=== PATIENT | male | born 1955 | race Caucasian/White ===

== ENCOUNTER 2017-02-10 19:59 | Emergency (ER) | payer MEDICARE ==
[2017-02-10] MEDS ORDERED: Lisinopril 20 MG Tab PO STA (21:02)
[2017-02-10] MEDS ORDERED: Lisinopril 10 MG Tab ONE (21:07)
--- NOTE | 2017-02-10 21:07 | EDM.PDOCBH ---
ED HPI GENERAL MEDICAL PROBLEM - General Chief Complaint: Behavioral/Psych Stated Complaint: EVAL Time Seen by Provider: 02/10/17 21:02 Source of Information: Reports: Patient History Limitations: Reports: No Limitations - History of Present Illness INITIAL COMMENTS - FREE TEXT/NARRATIVE: pt is homeless and he lives in his van. He was parked at the gas station in [place] and someone calld because he had been there a long time. He was brought in by the admissions counselor and he admits to being a schzophrenic. He is homeless but he was not trying to harm himself or anyone. Duration: Chronic, Other (pt does have a history of hypertension and is not taking his meds. ) Location: Reports: Head, Other ( pt does have a headache.) Associated Symptoms: Reports: Headaches - Related Data Allergies Allergy/AdvReac Type Severity Reaction Status Date / Time No Known Allergies Allergy Verified 02/10/17 20:24 Home Meds: Home Meds Acetaminophen [Acetaminophen Extra Strength] 1,000 mg PO QID 02/10/17 [History] Aspirin [Halfprin] 2 tab PO DAILY 02/10/17 [History] Omeprazole 1 tab PO DAILY 02/10/17 [History] Past Medical History HEENT History: Reports: Other (See Below) Other HEENT History: perforated eardrum Cardiovascular History: Reports: Hypertension Psychiatric History: Reports: Schizophrenia Other Psychiatric History: paranoid schizophrenia - Past Surgical History HEENT Surgical History: Reports: Adenoidectomy, Tonsillectomy, Other (See Below) Other HEENT Surgeries/Procedures: ENT surgery Cardiovascular Surgical History: Reports: Other (See Below) Other Cardiovascular Surgeries/Procedures: angiogram Social & Family History - Tobacco Use Smoking Status *Q: Never Smoker - Caffeine Use Caffeine Use: Reports: Coffee - Recreational Drug Use Recreational Drug Use: No ED ROS GENERAL - Review of Systems Review Of Systems: See Below Constitutional: Reports: No Symptoms HEENT: Reports: Other (pt would like to have some dental work) Respiratory: Reports: No Symptoms Cardiovascular: Reports: No Symptoms, Other (bp is quite high. ) Endocrine: Reports: No Symptoms GI/Abdominal: Reports: No Symptoms : Reports: No Symptoms Musculoskeletal: Reports: No Symptoms Skin: Reports: No Symptoms ED EXAM, BEHAVIORAL HEALTH - Physical Exam Exam: See Below Text/Narrative:: pt arrived with a history of schzophenia. He is living in his van. He was brought in by the admissions counselor because he has been there for awhile. Exam Limited By: No Limitations General Appearance: Alert, No Apparent Distress Ears: Normal TMs Nose: Normal Inspection Throat/Mouth: Normal Inspection, Other (pt has a few dental issues that do not look severe. ) Neck: Normal Inspection Respiratory/Chest: No Respiratory Distress Cardiovascular: Regular Rate, Rhythm GI/Abdominal: Soft, Non-Tender (Male) Exam: Deferred Rectal (Males) Exam: Deferred Back Exam: Normal Inspection Extremities: Normal Inspection Neurological: Alert, Normal Cognition, Other (pt is very paranoid. ) Psychiatric: Alert, Normal Cognition, Other (paranoid) COURSE, BEHAVIORAL HEALTH COMP - Course Vital Signs: Last Vital Signs Temp 37.2 C 02/10/17 20:32 Pulse 82 02/10/17 20:32 Resp 18 02/10/17 20:32 BP 206/131 H 02/10/17 21:11 Pulse Ox 98 02/10/17 20:32 Orders, Labs, Meds: Laboratory Tests 02/10/17 02/10/17 02/10/17 Range/Units 21:12 21:12 21:32 WBC 10.2 (4.5-11.0) K/uL RBC 5.24 (4.30-5.90) M/uL Hgb 14.4 (12.0-15.0) g/dL Hct 43.0 (40.0-54.0) % MCV 82 (80-98) fL MCH 28 (27-31) pg MCHC 34 (32-36) % Plt Count 267 (150-400) K/uL Neut % (Auto) 78 H (36-66) % Lymph % (Auto) 15 L (24-44) % [place] % (Auto) 7 H (2-6) % Eos % (Auto) 1 L (2-4) % Baso % (Auto) 0 (0-1) % Sodium 140 (140-148) mmol/L Potassium 3.7 (3.6-5.2) mmol/L Chloride 105 (100-108) mmol/L Carbon Dioxide 24 (21-32) mmol/L Anion Gap 10.7 (5.0-14.0) mmol/L BUN 16 (7-18) mg/dL Creatinine 1.0 (0.8-1.3) mg/dL Est Cr Clr Drug Dosing 82.13 mL/min Estimated GFR (MDRD) > 60 (>60) Glucose 127 H (74-106) mg/dL Calcium 9.0 (8.5-10.1) mg/dL Total Bilirubin 0.3 (0.2-1.0) mg/dL AST 13 L (15-37) U/L ALT 26 (12-78) U/L Alkaline Phosphatase 82 (46-116) U/L Total Protein 7.3 (6.4-8.2) g/dL Albumin 3.7 (3.4-5.0) g/dL Globulin 3.6 H (2.3-3.5) g/dL Albumin/Globulin Ratio 1.0 L (1.2-2.2) Urine Color Yellow Urine Appearance Clear Urine pH 5.0 (4.5-8.0) Ur Specific [place] 1.010 (1.008-1.030) Urine Protein Negative (NEGATIVE) mg/dL Urine Glucose (UA) Normal (NEGATIVE) mg/dL Urine Ketones Negative (NEGATIVE) mg/dL Urine Occult Blood Negative (NEGATIVE) Urine Nitrite Negative (NEGAITVE) Urine Bilirubin Negative (NEGATIVE) Urine Urobilinogen Normal (NORMAL) mg/dL Ur Leukocyte Esterase Negative (NEGATIVE) Urine RBC Not seen (0-5) Urine WBC 0-5 (0-5) Ur Epithelial Cells Not seen Amorphous Sediment Rare Urine Bacteria Not seen Urine Mucus Not seen Medications Discontinued Medications Generic Name Dose Route Start Last Admin Trade Name Garfield PRN Reason Stop Dose Admin Lisinopril 20 mg 02/11/17 09:00 02/10/17 21:11 Prinivil PO 02/11/17 09:01 20 mg DAILY ONE Administration Lisinopril 20 mg 02/10/17 21:02 02/10/17 21:12 Prinivil PO 02/10/17 21:03 Not Given NOW STA Lisinopril Confirm 02/10/17 21:07 02/10/17 21:12 Prinivil Administered 02/10/17 21:08 Not Given Dose 20 mg .ROUTE .STK-MED ONE Medical Clearance: 02/10/17 21:24 pt was given lisinopril 20mg His bp is very high. He states he gets his lisinopril filled and after about 3 pills it goes bad. He thinks someone alters his pills. He has not been able to get dental work done and he has not been able to find a place to stay for the winter. 02/10/17 21:47 pt had a normal cbc and his urine is clear. 02/10/17 21:47 lab work looks good. Departure - Departure Time of Disposition: 21:48 Disposition: Home, Self-Care 01 Condition: Fair Clinical Impression: Hypertension - Discharge Information Referrals: PCP,None [Primary Care Provider] - Forms: ED Department Discharge Care Plan Goals: lisinopril 20mg daily, encourage fluids, give pt a copy of his lab work to take with him.
[2017-02-11] MEDS ORDERED: Lisinopril 20 MG Tab PO ONE (09:00)
== END 2017-02-10 21:56 | disposition home or self-care (01) ==
LOC: JP.ED 19:59
DX: I10 Essential (primary) hypertension (principal); Z79.82 Long term (current) use of aspirin; Z79.899 Other long term (current) drug therapy
CPT/HCPCS: 36415; 80053; 81001; 85025; 99285; A9270; 99284